=== PATIENT | female | born 1995 | race African-American/Black ===

== ENCOUNTER 2022-12-03 20:32 | Emergency (ER) | payer BC ==
[~2022-12-03] VITALS: Ht 162.6 cm; Wt 95.3 kg
[2022-12-03 20:35] VITALS: BP 104/68
--- NOTE | 2022-12-03 20:35 | NUR ---
BIBA TO BED 12 WITH C/O N/V AND EPIGASTRIC PAIN AFTER INGESTING ZINC, 100 MG. NO VOMITING AT THIS TIME AND IS UNABLE TO GIVE UA. AMBULATED FROM AMBULANCE GURNEY TO BED
[2022-12-03] MEDS ORDERED: DICYCLOMINE HCL LIQUID 20 MG, ALUMINUM HYD/MAG/SIMETHICONE 30 ML, LIDOCAINE VISCOUS 2% ... PO ONE ×3 (21:05)
[2022-12-03] MEDS ORDERED: ALUMINUM HYD/MAG/SIMETHICONE 30 ML UDC ONE ×2 (21:10→21:11)
[2022-12-03] MEDS ORDERED: DICYCLOMINE HCL LIQUID 10 MG/5 ML UDC ONE (21:10)
[2022-12-03 21:45] VITALS: BP 104/68
--- NOTE | 2022-12-03 21:45 | NUR ---
Patient discharged with v/s stable. Written and verbal after care instructions given and explained. Patient verbalized understanding. Ambulatory with steady gait. All questions addressed prior to discharge. Advised to follow up with PMD.
== END 2022-12-03 21:45 | disposition home or self-care (01) ==
LOC: MED 20:32
DX: R11.2 Nausea with vomiting, unspecified (principal); R10.9 Unspecified abdominal pain
CPT/HCPCS: 99283

== ENCOUNTER 2023-06-02 14:19 | Inpatient (IN) | payer BC, MEDICAID ==
[~2023-06-02] VITALS: Ht 152.4 cm; Wt 76.2 kg
[2023-06-02 14:38] VITALS: BP 106/72; PULSE 120; RESP 20; TEMP 97.9; O2SAT 97
[2023-06-02] MEDS ORDERED: NACL 0.9% 1,000 ML IV ONE ×2 (14:55→23:05)
[2023-06-02] MEDS ORDERED: methylPREDNISolone SS 125 MG/2 ML VIAL IVP ONE (14:55)
[2023-06-02] MEDS ORDERED: methylPREDNISolone SS 125 MG/2 ML VIAL ONE (17:23)
[2023-06-02] MEDS: KETOROLAC 30 MG/ML VIAL IVP ONE ×2 (17:27→17:31)
[2023-06-02] MEDS ORDERED: MORPHINE SULFATE 4 MG/ML SYR IVP ONE ×3 (17:30→22:30)
[2023-06-02 17:38] LABS: BASOPHILS # (AUTO) 0.1 K/uL (0.00-0.22); BASOPHILS % (AUTO) 0.8 % (0.0-2.0); EOSINOPHILS # (AUTO) 0.2 K/uL (0-0.4); EOSINOPHILS % (AUTO) 1.2 % (0.0-4.0); HEMATOCRIT 29.4 % (36-48); HEMOGLOBIN 8.9 g/dL (12.0-16.0); LYMPHOCYTES # (AUTO) 2.9 K/uL (2.5-16.5); LYMPHOCYTES % (AUTO) 22.9 % (20.5-51.1); MEAN CORPUSCULAR HEMOGLOBIN 20 pg (27-31); MEAN CORPUSCULAR HGB CONC 30 g/dL (33-37); MEAN CORPUSCULAR VOLUME 65.6 fL (80-94); MONOCYTES # (AUTO) 0.4 K/uL (0.8-1.0); MONOCYTES % (AUTO) 3.4 % (1.7-9.3); NEUTROPHILS # (AUTO) 9.1 K/uL (1.8-7.7); NEUTROPHILS % (AUTO) 71.7 % (42.2-75.2); PLATELET COUNT (AUTO) 447 K/uL (140-450); RED BLOOD CELL COUNT(AUTO) 4.49 MIL/uL (4.20-5.40); RED CELL DISTRIBUTION WIDTH 19.4 % (11.6-13.7); WHITE BLOOD COUNT (AUTO) 12.7 K/uL (4.8-10.8)
[2023-06-02 18:08] LABS: ALBUMIN 2.9 g/dL (3.4-5.0); ANION GAP 13.5 (8-16); CALCIUM 8.3 mg/dL (8.5-10.1); CARBON DIOXIDE 26.5 mmol/L (21-32); CREATININE 0.5 mg/dL (0.6-1.3); TOTAL BILIRUBIN 0.1 mg/dL (0.0-1.0); TOTAL PROTEIN, SERUM 7.7 g/dL (6.4-8.2)
[2023-06-02 18:53] LABS: APPEARANCE,URINE CLEAR (CLEAR); BILIRUBIN,URINE NEGATIVE (NEGATIVE); BLOOD, URINE NEGATIVE (NEGATIVE); COLOR,URINE YELLOW (YELLOW); LEUKOCYTE ESTERASE ,URINE NEGATIVE (NEGATIVE); NITRITE, URINE NEGATIVE (NEGATIVE); PH,URINE 6.5 (5.0-9.0); PROTEIN,URINE NEGATIVE (NEGATIVE); UGLUCOSE NEGATIVE (NEGATIVE); UROBILINOGEN,URINE 0.2 EU/dL (0.2 - 1)
[2023-06-02 20:28] VITALS: O2SAT 96
[2023-06-02] MEDS ORDERED: ACETAMINOPHEN 325 MG TAB PO ONE (22:30)
[2023-06-02] MEDS ORDERED: POTASSIUM CHLORIDE 10 MEQ TABER PO PRN (23:10)
[2023-06-02] MEDS ORDERED: HYDROcodone/APAP 7.5/325 MG 1 TAB PO PRN (23:10)
[2023-06-02] MEDS ORDERED: DOCUSATE SODIUM 100 MG GELCAP PO PRN (23:10)
[2023-06-02] MEDS ORDERED: ZOLPIDEM 5 MG TAB PO PRN (23:10)
[2023-06-02] MEDS ORDERED: metroNIDAZOLE 500 MG/NS PREMIX 100 ML IV ONE (23:10)
[2023-06-02] MEDS ORDERED: ONDANSETRON 4 MG/2 ML VIAL IM/IVP PRN (23:10)
[2023-06-02] MEDS ORDERED: NACL 0.9% 1,000 ML IV SCH (23:10)
[2023-06-02] MEDS ORDERED: guaiFENesin DM 200/20 MG-10 ML 10 ML UDC PO PRN (23:10)
[2023-06-02] MEDS ORDERED: ACETAMINOPHEN 325 MG TAB PO PRN (23:10)
[2023-06-02] MEDS ORDERED: cefTRIAXone 1,000 MG VIAL ONE (23:17)
[2023-06-02 23:54] LABS: LACTIC ACID 0.7 mmol/L (0.4-2.0)
[2023-06-03 00:25] VITALS: PULSE 116; RESP 23; O2SAT 99
[2023-06-03] MEDS ORDERED: [UNRECOGNIZED DRUG - CODE] PO (00:28)
[2023-06-03] MEDS ORDERED: RIVA20TA PO (00:28)
[2023-06-03] MEDS ORDERED: BUS5 PO (00:28)
[2023-06-03] MEDS ORDERED: CITA10TA11 PO (00:28)
[2023-06-03] MEDS ORDERED: MSCON15 PO (00:28)
[2023-06-03] MEDS ORDERED: OMEP20EC11 PO (00:28)
[2023-06-03] MEDS ORDERED: ALPR0.5T2 PO (00:28)
[2023-06-03] MEDS ORDERED: CYCL-711 PO (00:28)
[2023-06-03] MEDS ORDERED: MELA10CA PO (00:28)
[2023-06-03] MEDS: MORPHINE SULFATE 2 MG/ML SYR IVP PRN ×4 (01:14→10:06)
[2023-06-03 02:04] VITALS: PULSE 131
[2023-06-03 04:00] VITALS: BP 122/79; PULSE 94; RESP 18; TEMP 98.2; O2SAT 98
[2023-06-03] MEDS ORDERED: diphenhydrAMINE 50 MG/ML VIAL IVP ONE (05:05)
[2023-06-03 08:42] VITALS: PULSE 110; RESP 20; O2SAT 100
[2023-06-03] MEDS ORDERED: CYCLOBENZAPRINE 10 MG TAB PO PRN (08:50)
[2023-06-03] MEDS ORDERED: RIVAROXABAN 10 MG TAB PO SCH (09:00)
[2023-06-03] MEDS ORDERED: CITALOPRAM 20 MG TAB PO SCH (09:00)
[2023-06-03] MEDS ORDERED: PANTOPRAZOLE 40 MG TABEC PO SCH (09:00)
[2023-06-03] MEDS ORDERED: ALPRAZolam 0.5 MG TAB PO SCH (09:00)
[2023-06-03] MEDS ORDERED: MORPHINE TAB ER 15 MG TABER PO SCH (09:00)
[2023-06-03] MEDS ORDERED: busPIRone 5 MG TAB PO SCH (09:00)
[2023-06-03] MEDS ORDERED: METR-435 PO (09:06)
[2023-06-03 09:33] VITALS: BP 135/59; PULSE 69; RESP 20; TEMP 97.1
[2023-06-03] MEDS ORDERED: FLUCONAZOLE 100 MG TAB PO SCH (11:00)
== END 2023-06-03 11:25 | disposition home or self-care (01) | DRG 249 ==
LOC: MED 14:19 → MTU 23:12
PROVIDERS: ADMIT Student in an Organized Health Care Education/Training Program; ATTEND Student in an Organized Health Care Education/Training Program
DX: K52.9 Noninfective gastroenteritis and colitis, unspecified (principal); R65.10 Systemic inflammatory response syndrome (SIRS) of non-infectious origin without acute organ dysfunction; F11.20 Opioid dependence, uncomplicated; E66.9 Obesity, unspecified; Z68.32 Body mass index [BMI] 32.0-32.9, adult; F41.9 Anxiety disorder, unspecified; Z90.49 Acquired absence of other specified parts of digestive tract; K21.9 Gastro-esophageal reflux disease without esophagitis; Z88.8 Allergy status to other drugs, medicaments and biological substances
CPT/HCPCS: 36415; 71045; 80053; 81003; 83605; 83690; 85025; 85651; 86140; 87040; 87081; 96374; 96375; 96376; 99285; J0696; J1200; J1885; J2270; J2930; J3490; Q0092